=== PATIENT | female | born 1950 | race Caucasian/White ===

== ENCOUNTER 2020-03-05 05:57 | Outpatient (CLI) | payer MEDICARE, OTHER ==
--- NOTE | 2020-03-05 13:24 | RAD ---
PA AND LATERAL CHEST: HISTORY: Preop. FINDINGS: Heart size is within normal limits. The aorta is tortuous. The lungs are clear of infiltrates. The re are arthritic changes of the spine. IMPRESSION: No active intrathoracic disease. POS: [facility]
[2020-03-05 14:53] LABS: #Eosinphils 0.1 thou/uL (0.0-0.7); #Lymphocytes 1.1 thou/uL (1.20-3.40); #Monocytes 0.5 thou/uL (0.11-0.59); #Neutrophils 3.1 thou/uL (1.40-6.50); %Basophils 0.7 % (0.0-1.0); %Lymphocytes 22.2 % (21.0-51.0); %Monocytes 10.2 % (0.0-10.0); %Neutrophils 64.9 % (42.0-75.0); Hemoglobin 14.5 g/dL (12.0-16.0); Mean Corpuscular HGB CONC 33.3 g/dL (32.0-36.0); Mean Corpuscular Hemoglobin 30.9 pg (27.0-31.0); Mean Corpuscular Volume 92.9 fL (78.0-98.0); Mean Platelet Volume 8.7 fL (7.4-10.4); Platelet Count 213 thou/uL (130-400); RBC Distribution Width 13.2 % (11.5-14.5); Red Blood Cell (RBC) Count 4.69 mill/uL (4.20-5.40); White Blood Cell (WBC) Count 4.8 thou/uL (4.8-10.8)
[2020-03-05 15:09] LABS: ALT (SGPT) 27 U/L (8-55); AST (SGOT) 16 U/L (5-34); Albumin 4.6 g/dL (3.4-4.8); Alkaline Phosphatase 76 U/L (40-110); Anion Gap 13 mmol/L (10-20); BUN (Urea Nitrogen) 9 mg/dL (9.8-20.1); Bilirubin, Total 1.5 mg/dL (0.2-1.2); Calc. Creatinine Clearance 0 mL/min (70-130); Calcium 9.6 mg/dL (7.8-10.44); Carbon Dioxide 27 mmol/L (23-31); Chloride 100 mmol/L (98-107); Estimated GFR-MDRD 58; Globulin 2.4 g/dL (2.4-3.5); Glucose 97 mg/dL (83-110); Potassium 3.9 mmol/L (3.5-5.1); Sodium 136 mmol/L (136-145)
[2020-03-06 12:16] LABS: SARS-CoV-2 MS2 Positive; SARS-CoV-2 N Gene Negative; SARS-CoV-2 S Gene Negative; SARS-CoV-2 orf1ab Negative
--- NOTE | 2020-03-08 10:17 | EKG ---
Test Reason : Blood Pressure : / mmHG Vent. Rate : 072 BPM Atrial Rate : 072 BPM P-R Int : 166 ms QRS Dur : 088 ms QT Int : 400 ms P-R-T Axes : 074 018 038 degrees QTc Int : 438 ms Normal sinus rhythm Normal ECG No previous ECGs available Confirmed by CORNELIA LEDESMA (2) on 03/08/2020 10:17:36 AM Referred By: FAIZAN Confirmed By:CORNELIA LEDESMA
== END 2020-03-05 05:58 | disposition home or self-care (01) ==
LOC: LABBT 05:57
PROVIDERS: ATTEND Specialist
DX: Z01.818 Encounter for other preprocedural examination (principal); Z11.59 Encounter for screening for other viral diseases; K82.8 Other specified diseases of gallbladder
CPT/HCPCS: 71046; 80053; 85025; 93005; U0003; 87635; 93010

== ENCOUNTER 2020-03-09 09:28 | Day surgery (SDC) | payer MEDICARE, OTHER ==
[2020-03-03 13:58] VITALS: BMI 25.9
[2020-03-09] MEDS ORDERED: Acetaminophen 500 MG TAB ONE (09:53)
[2020-03-09] MEDS ORDERED: Ketorolac Tromethamine 30 MG/ML VIAL ONE (10:36)
[2020-03-09] MEDS ORDERED: PROPOFOL 200 MG/20 ML VIAL ONE (12:10)
[2020-03-09] MEDS ORDERED: Rocuronium Bromide 10 MG/ML (10ML VIAL) ONE (12:10)
[2020-03-09] MEDS ORDERED: Lidocaine 1% PF 5 ML VIAL ONE (12:10)
[2020-03-09] MEDS ORDERED: Labetalol HCl 100 MG/20 ML VIAL ONE (12:10)
[2020-03-09] MEDS ORDERED: Glycopyrrolate 0.2 MG/ML 5 ML SYRINGE ONE (12:10)
[2020-03-09] MEDS ORDERED: Lidocaine 1% w/Epinephrine 1:100K 20 ML VIAL ONE (12:13)
[2020-03-09] MEDS ORDERED: Bupivacaine 0.25% HCL 30 ML VIAL ONE (12:13)
[2020-03-09] MEDS ORDERED: Lidocaine 2% Jelly 5 ML TUBE ONE (12:17)
[2020-03-09] MEDS ORDERED: Fentanyl 100 MCG/2 ML VIAL ONE ×3 (12:17→15:03)
[2020-03-09] MEDS ORDERED: HYDROcodone/Acetaminophen 5/325 mg Tablet ONE (15:02)
[2020-03-09] MEDS ORDERED: Ondansetron PF 4 MG/2 ML Vial ONE (16:04)
--- NOTE | 2020-03-10 12:48 | OP ---
DATE OF PROCEDURE: 03/09/2020 PREOPERATIVE DIAGNOSES: Biliary dyskinesia and liver tumor. POSTOPERATIVE DIAGNOSES: Biliary dyskinesia and liver tumor. PROCEDURES PERFORMED: Laparoscopic cholecystectomy and percutaneous biopsy of right lobe liver mass. ANESTHESIA: General endotracheal. INDICATIONS: The patient is a 69-year-old white female. 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 She has atypical symptoms related to her gallbladder, but noted reproduction of the symptoms during her HIDA scan. For this reason, consideration of a cholecystectomy was recommended. After discussions of options, she decided to proceed with laparoscopic cholecystectomy. DESCRIPTION OF OPERATION: Informed consent was obtained, the patient was taken to the operating room, where general endotracheal anesthesia was obtained with the patient in supine position. The abdomen was prepped with ChloraPrep and draped in sterile fashion. As she had a lower midline abdominal incision, I gained access in the right upper quadrant. Local anesthetic was infiltrated and a 5 mm incision was created through which a Veress needle was passed into the peritoneal cavity and pneumoperitoneum was established using carbon dioxide up to pressure of 15 mmHg. A 5 mm trocar port was passed through this same incision, laparoscopic camera was passed in this port. Under direct vision, 2 additional 5 mm ports were placed, both in the right upper quadrant. There were extensive adhesions extending well above the umbilicus and well over to the right side of the abdomen. These prevented visualization of any of the lower abdomen. I gently cleared adhesions from the anterior abdominal wall until I could visualize area of the umbilicus. At that point, I placed an 11 mm port in the periumbilical area under direct vision. I continued to clear adhesions from the midline near the falciform ligament. All adhesions were omental and no bowel was involved in the adhesion mobilization. Attention was then turned to the gallbladder. This was large and not particularly distended, but markedly enlarged. This was involved with extensive adhesions. I was able to grasp this and retracted gently and began to take down adhesions. Eventually, I was able to retracted in a cephalad direction. There was at this juncture that I was able to recognize the sclerotic tissue that comprised the liver tumor. This was on the right lobe of the liver and this in fact made up the right aspect of the gallbladder fossa such that the gallbladder was attached to the area of this tumor. The apex of the gallbladder was identified and carefully retracted. I carried out dissection of the apex to identify the cystic duct and cystic artery. These were each identified, dissected and divided between clips leaving two on the side to remain within the abdomen. During the course of further dissection, I recognized a fairly large posterior artery as well that was divided between clips. The gallbladder was dissected out of the gallbladder fossa using electrocautery without injury to the gallbladder. This was removed through the periumbilical port. Fascia was closed at this location using 0 Vicryl suture in a GraNee needle. Attention was returned to the liver and the gallbladder fossa. Meticulous hemostasis was obtained with electrocautery. The insufflation was decreased within the abdomen. A 14-gauge biopsy needle was obtained and passed through the abdominal wall and utilized to obtain three biopsies of the area of the liver tumor. As mentioned, this was sclerotic in appearance and most of it had a fairly spongy texture. It did not appear typical of a malignancy. There was a little bleeding from couple of the biopsy sites that was easily controlled with electrocautery. The area was thoroughly irrigated. Meticulous hemostasis was ensured. All ports and instruments were removed under direct vision. Pneumoperitoneum was carefully evacuated. 0.25% Marcaine with epinephrine was infiltrated into each port site. Skin edges approximated with 4-0 Monocryl subcuticular suture. Dermabond was placed externally. There were no complications. The patient tolerated the procedure well and was taken to recovery room in stable condition. Job ID: [id number]
== END 2020-03-09 16:40 | disposition home or self-care (01) ==
LOC: SDC 09:28
PROVIDERS: ATTEND Specialist
PROC: 0FT44ZZ Resection of Gallbladder, Percutaneous Endoscopic Approach (ICD-10-PCS; principal; 2020-03-09)
PROC: 0FD03ZX Extraction of Liver, Percutaneous Approach, Diagnostic (ICD-10-PCS; 2020-03-09)
DX: K82.8 Other specified diseases of gallbladder (principal); D49.0 Neoplasm of unspecified behavior of digestive system; K66.0 Peritoneal adhesions (postprocedural) (postinfection); I10 Essential (primary) hypertension; E78.5 Hyperlipidemia, unspecified; G47.30 Sleep apnea, unspecified; E11.9 Type 2 diabetes mellitus without complications; E89.2 Postprocedural hypoparathyroidism; Z79.82 Long term (current) use of aspirin; Z79.899 Other long term (current) drug therapy
CPT/HCPCS: 88304; 88307; J0690; J1885; J2405; J2704; J3010; S0020